=== PATIENT | male | born 1985 | race Caucasian/White ===

== ENCOUNTER → 2017-07-08 | Outpatient (CLI) | payer OTHER | LOC: RAD 13:53 | DX: J18.9 Pneumonia, unspecified organism (principal); R13.10 Dysphagia, unspecified | CPT/HCPCS: 71020 ==

== ENCOUNTER 2020-11-16 17:36 | Inpatient (IN) | payer OTHER ==
[~2020-11-16] VITALS: Ht 175.3 cm; Wt 84.0 kg
[~2020-11-16 17:36] MED LIST: AUGMENTIN400 MG/5 M PO; BOOST237 ML PO; CATAPRES 0.1MG0.1 MG PO; CLARITIN10 MG PO; COGENTIN 2MG TAB2 MG PO; COLACE 100MG C100 MG PO; DEPAKOTE ER500 MG PO; FEOSOL325 MG PO; HALDOL 5 MG TAB5 MG PO; KLONOPIN1 MG PO; LIPITOR TAB 1010 MG PO; LOPRESSOR 25 MG25 MG PO; RISPERDAL2 MG PO; SALINE NOSE SPR45 ML; SEROQUEL200 MG PO; SEROQUEL400 MG PO; TYLENOL 325MG325 MG PO
[2020-11-16 19:57] LABS: HEMOGLOBIN 15.4 gm/dl (14.0-17.5); RED BLOOD COUNT 4.93 M/UL (4.20-5.50); WHITE BLOOD COUNT 12.9 K/UL (4.5-11.0)
[2020-11-16 20:19] LABS: BUN/CREATININE RATIO 30 (0-10)
[2020-11-17] MEDS ORDERED: CATAPRES 0.1MG0.1 MG PO ×2 (10:12)
[2020-11-17] MEDS ORDERED: KLONOPIN1 MG PO (10:13)
[2020-11-17] MEDS ORDERED: SEROQUEL400 MG PO (10:17)
[2020-11-17] MEDS ORDERED: CLARITIN10 M1 PO (10:18)
[2020-11-17] MEDS ORDERED: MELATONIN10 M2 PO (10:18)
[2020-11-17] MEDS ORDERED: ENSURE ACTIVE237 ML PO (10:18)
[2020-11-17] MEDS ORDERED: REMERON15 MG PO (10:23)
[2020-11-17] MEDS ORDERED: TRIHEXYPHENIDYL5 MG PO (10:24)
--- NOTE | 2020-11-17 13:34 | NUR ---
PATIENT STANDING UP IN HIS BED, CRYING UNCTROLLABLE. STAFF ARE UNABLE TO CONSOLE. MEDICATIONS ARE NOT EFFECTIVE AT THIS TIME. NEW ORDER NOTED PER DR. MARSHALL TO PULL IV ATIVAN 0.5 MG AND GIVE STAT.
[2020-11-18 05:57] LABS: WHITE BLOOD COUNT 13.8 K/UL (4.5-11.0)
[2020-11-18 05:58] LABS: HEMOGLOBIN 12.2 gm/dl (14.0-17.5); RED BLOOD COUNT 3.93 M/UL (4.20-5.50)
[2020-11-18 06:28] LABS: BUN/CREATININE RATIO 32 (0-10)
--- NOTE | 2020-11-18 12:58 | NUR ---
1020: PATIENT'S ANXIETY HAS INCREASED, SCREAMING AND HITTING AT SITTER, WANTING TO GO HOME. RN SPOKE WITH NELSON, EXC DIRECTOR WITH [employer]DEPENDENT [employer] REQUESTING THAT FAMILIAR STAFF COME SIT WITH PATIENT TO AIDE IN PATIENTS ANXIRTY AND DESIRE TO GO HOME. NELSON STATES THAT THERE IS NO AVAILABLE STAFF TO COME SIT WITH PATIENT, SHE ASKED THAT THE HOSPITAL STAFF TURN ON A COOKING SHOW FOR THE PATIENT. RN SPOKE WITH DR MARSHALL AND UPDATED WITH PATIENTS CURRENT DEMENOR, NEW ORDERS RECEIVED. 1024: ATIVAN 0.5 MG IV GIVEN, DR MARSHALL NOW AND BEDSIDE AND REQUEST ATIVAN 1 MG IV BE GIVEN NOW. ADDITIONAL 0.5 MG ATIVAN GIVEN FROM DAME VIAL TO EQUAL ORDERED 1 MG DOSE. PER VO DR MARSHALL HALDOL 5 MG IM GIVEN TO FACILITATE REST AND DECREASE ANXIETY. 1128: PATIENT CONTINUES TO FIGHT STAFF, PER VE DR MANSFIELD BENADRYL 25 MG IV GIVEN TO FACILITATE REST AND DECREASE ANXIETY. 1149: NO CLINICAL CHANGES NOTED IN PATIENTS ANXIETY LEVEL. PER VO DR MANSFIELD GEODON 10 MG IM GIVEN TO FACILITATE REST AND DECREASE ANXIETY. 1230: PATIENT WITH NO CLINICAL CHANGES, CONTINUES TO FIGHT STAFF, THROW HELMET, AND KICK. 1330: PATIENT CONTINUES TO CRY AND REQUEST TO GO HOME, CONINUES TO HAVE OUTBURSTS OF HITTING AND KICKING AT STAFF.
[2020-11-19 04:37] LABS: HEMOGLOBIN 11.3 gm/dl (14.0-17.5); RED BLOOD COUNT 3.67 M/UL (4.20-5.50)
[2020-11-19 04:46] LABS: WHITE BLOOD COUNT 8.2 K/UL (4.5-11.0)
[2020-11-19 05:48] LABS: BUN/CREATININE RATIO 20 (0-10)
[2020-11-20 08:42] LABS: HEMOGLOBIN 11.1 gm/dl (14.0-17.5); RED BLOOD COUNT 3.58 M/UL (4.20-5.50)
[2020-11-20 09:03] LABS: BUN/CREATININE RATIO 18 (0-10)
[2020-11-21 06:10] LABS: HEMOGLOBIN 11.3 gm/dl (14.0-17.5); RED BLOOD COUNT 3.66 M/UL (4.20-5.50); WHITE BLOOD COUNT 7.1 K/UL (4.5-11.0)
[2020-11-21 06:37] LABS: BUN/CREATININE RATIO 19 (0-10)
[2020-11-21] MEDS ORDERED: AUGMENTIN 875-1 EACH PO (14:39)
== END 2020-11-21 17:03 | disposition other institution (70) | DRG 417 ==
LOC: ER1 17:36 → M/S 11-17 03:15 → CDU 11-17 03:15 → M/S 11-17 05:31
PROVIDERS: Emergency Medicine; Internal Medicine; Surgery; ADMIT Internal Medicine
PROC: BF14YZZ Fluoroscopy of Gallbladder, Bile Ducts and Pancreatic Ducts using Other Contrast (ICD-10-PCS; 2020-11-19)
PROC: 0FT44ZZ Resection of Gallbladder, Percutaneous Endoscopic Approach (ICD-10-PCS; principal; 2020-11-19 08:30)
DX: K85.10 Biliary acute pancreatitis without necrosis or infection (principal); K83.1 Obstruction of bile duct; D68.32 Hemorrhagic disorder due to extrinsic circulating anticoagulants; Z20.822 Contact with and (suspected) exposure to COVID-19; F72 Severe intellectual disabilities; R17 Unspecified jaundice; R04.0 Epistaxis; T45.515A Adverse effect of anticoagulants, initial encounter; Z79.899 Other long term (current) drug therapy; K21.9 Gastro-esophageal reflux disease without esophagitis; G40.909 Epilepsy, unspecified, not intractable, without status epilepticus; R45.1 Restlessness and agitation
CPT/HCPCS: 36415; 71045; 76000; 76705; 80053; 82150; 82550; 82553; 83690; 84484; 85025; 93005; 99285; C9113; J0690; J1100; J1170; J1200; J1630; J1650; J1885; J2001; J2060; J2250; J2405; J2543; J2704; J2710; J3010; J3486; J7030; J7120; Q9962; Q9967; U0002

== ENCOUNTER 2021-04-27 10:08 | Emergency (ER) | payer OTHER ==
[~2021-04-27 10:08] MED LIST changes: +AUGMENTIN 875-1 EACH PO; +CLARITIN10 M1 PO; +ENSURE ACTIVE237 ML PO; +MELATONIN10 M2 PO; +REMERON15 MG PO; +TRIHEXYPHENIDYL5 MG PO
== END 2021-04-27 12:45 | disposition home or self-care (01) ==
LOC: ER1 10:08
DX: S51.012A Laceration without foreign body of left elbow, initial encounter (principal); Z23 Encounter for immunization; W01.0XXA Fall on same level from slipping, tripping and stumbling without subsequent striking against object, initial encounter; Y92.009 Unspecified place in unspecified non-institutional (private) residence as the place of occurrence of the external cause
CPT/HCPCS: 12001; 73080; 90471; 90715; 99283

== ENCOUNTER 2021-06-01 10:08 | Emergency (ER) | payer OTHER | END 2021-06-01 12:46 | disposition home or self-care (01) | LOC: ER1 10:08 | DX: S09.90XA Unspecified injury of head, initial encounter (principal); S05.12XA Contusion of eyeball and orbital tissues, left eye, initial encounter; S05.11XA Contusion of eyeball and orbital tissues, right eye, initial encounter; I10 Essential (primary) hypertension; K21.9 Gastro-esophageal reflux disease without esophagitis; G40.909 Epilepsy, unspecified, not intractable, without status epilepticus; W22.8XXA Striking against or struck by other objects, initial encounter | CPT/HCPCS: 70450; 99283 ==

== ENCOUNTER 2021-08-08 11:16 | Emergency (ER) | payer OTHER | END 2021-08-08 12:02 | disposition home or self-care (01) | LOC: ER1 11:16 | DX: S09.90XA Unspecified injury of head, initial encounter (principal); Z86.69 Personal history of other diseases of the nervous system and sense organs; W22.8XXA Striking against or struck by other objects, initial encounter | CPT/HCPCS: 99283 ==

== ENCOUNTER → 2021-09-14 | Outpatient (CLI) | payer OTHER ==
[2021-09-14 16:00] LABS: HEMOGLOBIN 13.7 gm/dl (14.0-17.5); RED BLOOD COUNT 4.36 M/UL (4.20-5.50); WHITE BLOOD COUNT 7.1 K/UL (4.5-11.0)
[2021-09-14 16:15] LABS: BUN/CREATININE RATIO 19 (0-10)
== END ==
LOC: RAD 15:13
PROVIDERS: Family Medicine
DX: R27.0 Ataxia, unspecified (principal); G40.909 Epilepsy, unspecified, not intractable, without status epilepticus; R13.10 Dysphagia, unspecified; I45.6 Pre-excitation syndrome; K59.00 Constipation, unspecified; R14.3 Flatulence
CPT/HCPCS: 74018; 80048; 85025

== ENCOUNTER 2022-01-16 17:32 | Emergency (ER) | payer OTHER | END 2022-01-16 21:21 | disposition home or self-care (01) | LOC: ER1 17:32 | DX: S09.90XA Unspecified injury of head, initial encounter (principal); I10 Essential (primary) hypertension; K21.9 Gastro-esophageal reflux disease without esophagitis; X58.XXXA Exposure to other specified factors, initial encounter; Y92.009 Unspecified place in unspecified non-institutional (private) residence as the place of occurrence of the external cause | CPT/HCPCS: 70450; 99283 ==

== ENCOUNTER → 2022-06-07 | Outpatient (CLI) | payer OTHER | LOC: LAB 12:12 | DX: Z79.899 Other long term (current) drug therapy (principal) | CPT/HCPCS: 36415; G0480 ==